=== PATIENT | male | born 1965 | race Caucasian/White ===

== ENCOUNTER → 2016-11-07 | Outpatient (CLI) | payer OTHER ==
[~2016-11-07] MED LIST: CHANTIX0.5 MG PO; TRAZODONE HCL50 MG PO
== END | disposition home or self-care (01) ==
DX: M17.12 Unilateral primary osteoarthritis, left knee (principal); R26.2 Difficulty in walking, not elsewhere classified; R29.3 Abnormal posture; M79.605 Pain in left leg; M25.562 Pain in left knee; M25.662 Stiffness of left knee, not elsewhere classified; Z74.1 Need for assistance with personal care
CPT/HCPCS: 97110 GP; 97150 GO; 97161 GP; 97165 GO

== ENCOUNTER 2016-11-12 21:19 | Inpatient (IN) | payer OTHER ==
[~2016-11-12] VITALS: Ht 160 cm; Wt 81.8 kg
[2016-11-13 10:22] VITALS: BP 141/93
[2016-11-13 15:11] LABS: HEMATOCRIT 38.4 % (38.0-50.0); MCH 33.3 PG (29.0-34.0); MCHC 35.4 G/DL (30.0-36.0); MCV 94.1 FL (86-99); MEAN PLAT.VOLUME 9.7 uM^3 (9.0-12.4); PLATELET COUNT 264 K/uL (156-360); RBC DIS.WIDTH-CV 12.2 % (11.8-14.6); RBC DIS.WIDTH-SD 41.6 % (39-53); RED BLOOD COUNT 4.08 M/uL (4.00-5.50); WHITE BLOOD COUNT 5.7 K/uL (4.1-10.2)
[2016-11-13 16:06] VITALS: BP 145/86
[2016-11-13 19:55] VITALS: BP 148/80
[2016-11-13 23:54] VITALS: BP 167/94
[2016-11-14 07:47] LABS: HEMATOCRIT 36.4 % (38.0-50.0); MCV 92.6 FL (86-99)
[2016-11-14 07:56] VITALS: BP 180/98
[2016-11-14 08:17] LABS: ANION GAP 6 MEQ/L (2-14); CHLORIDE 96 MEQ/L (99-109); GFR ESTIMATE (CALCULATED) > 59 mL/min/; GLUCOSE 163 mg/dL (70-99); POTASSIUM 4.1 MEQ/L (3.7-5.4); SAMPLE HEMOLYSIS CHECK 0; SAMPLE ICTERIC CHECK 0; SAMPLE LIPEMIA CHECK 0; SODIUM 131 MEQ/L (136-147); UREA NITROGEN (BUN) 13 mg/dL (9-23)
[2016-11-14 11:50] VITALS: BP 185/94
[2016-11-14 15:43] VITALS: BP 174/93
[2016-11-14 20:10] VITALS: BP 145/88
[2016-11-15 00:17] VITALS: BP 135/98
[2016-11-15 04:01] VITALS: BP 141/90
[2016-11-15 04:26] LABS: HEMATOCRIT 35.6 % (38.0-50.0); MCV 92.7 FL (86-99)
[2016-11-15 04:35] LABS: CHLORIDE 98 mEq/L (99-109); POTASSIUM 4.4 mEq/L (3.7-5.4); SODIUM 135 mEq/L (136-147)
[2016-11-15 04:38] LABS: ANION GAP 7 MEQ/L (2-14)
[2016-11-15 04:41] LABS: GFR ESTIMATE (CALCULATED) > 59 mL/min/
[2016-11-15 04:42] LABS: GLUCOSE 103 mg/dL (70-99); UREA NITROGEN (BUN) 14 mg/dL (9-23)
[2016-11-15 08:00] VITALS: BP 157/83
[2016-11-15] MEDS ORDERED: LOVENOX40 MG/0.4 SC (09:14)
[2016-11-15] MEDS ORDERED: OXYCONTIN10 MG PO (09:14)
[2016-11-15] MEDS ORDERED: ENDOCET 5-3251 EACH PO (09:14)
[2016-11-15 12:00] VITALS: BP 127/69
== END 2016-11-15 15:10 | DRG 470 ==
LOC: ENRESERV 21:19 → 2SOUTH 11-13 09:06 → 3WEST 11-13 09:40 → 2SOUTH 11-13 09:40 → 3WEST 11-13 15:49
PROVIDERS: Orthopaedic Surgery; Physician Assistant
PROC: 0SRD0J9 Replacement of Left Knee Joint with Synthetic Substitute, Cemented, Open Approach (ICD-10-PCS; principal; 2016-11-13)
DX: M17.12 Unilateral primary osteoarthritis, left knee (principal); E87.1 Hypo-osmolality and hyponatremia; G47.30 Sleep apnea, unspecified; G47.00 Insomnia, unspecified; Z87.891 Personal history of nicotine dependence
CPT/HCPCS: 73560; 80048; 85014; 85018; 85027; C1713; J0690; J1170; J1650; J2250; J7050